=== PATIENT | female | born 1990 | race African-American/Black ===

== ENCOUNTER 2019-12-30 19:58 | Emergency (ER) | payer SELFPAY ==
[2019-12-30] MEDS ORDERED: Acetaminophen 500 MG TAB ONE (20:31)
[2019-12-30] MEDS ORDERED: Ketorolac Tromethamine 30 MG/ML VIAL ONE (20:31)
--- NOTE | 2019-12-30 20:35 | RAD ---
XR Knee Lt 4 View STANDARD HISTORY: Injury, left knee pain FINDINGS: No fracture or dislocation is identified.
== END 2019-12-30 21:28 | disposition home or self-care (01) ==
LOC: ERS 19:58
DX: S83.92XA Sprain of unspecified site of left knee, initial encounter (principal); V86.99XA Unspecified occupant of other special all-terrain or other off-road motor vehicle injured in nontraffic accident, initial encounter
CPT/HCPCS: 96372; J1885